=== PATIENT | male | born 1955 | race Caucasian/White ===

== ENCOUNTER → 2021-02-16 | Outpatient (CLI) | payer BC ==
--- NOTE | 2021-02-16 11:28 | P.STRESS ---
- Stress Test Note Stress Test Results/Findings: Exam Performed: stress echo exercise Exam Date: 02/16/21 Reason for Exam: CP Height: 6 ft 1 in Weight: 230 kg Protocol: STRESS ECHO Stage: IV Duration of Exercise: 12 Resting Heart Rate: 68 Resting Blood Pressure: 139/06 Maximum Achieved Heart Rate: 137 Maximum Achieved Blood Pressure: 211/97 85% PMHR: 87 100% PMHR: 157 METS: Technologist Comment: Stress Test Results/Findings: Patient exercised on a Saad protocol for 12 minutes Baseline 12-lead EKG sinus rhythm normal [place] narrow QRS normal ST segments No ECG evidence for ischemia No arrhythmias noted Baseline 2-D echo images showed normal LV size and systolic function without any segmental wall motion abnormalities At peak exercise, there was excellent augmentation of overall LV contractility without development of any wall motion abnormalities At the recovery regional and global LV systolic function remained normal Impression Hypertensive response to exercise Good exercise capacity No evidence for ischemia
--- NOTE | 2021-02-17 10:11 | EST ---
Stress Test Results/Findings: Exam Performed: stress echo exercise Exam Date: 02/16/21 Reason for Exam: CP Height: 6 ft 1 in Weight: 230 kg Protocol: STRESS ECHO Stage: IV Duration of Exercise: 12 Resting Heart Rate: 68 Resting Blood Pressure: 139/06 Maximum Achieved Heart Rate: 137 Maximum Achieved Blood Pressure: 211/97 85% PMHR: 87 100% PMHR: 157 METS: Technologist Comment: Stress Test Results/Findings: Patient exercised on a Saad protocol for 12 minutes Baseline 12-lead EKG sinus rhythm normal LA narrow QRS normal ST segments No ECG evidence for ischemia No arrhythmias noted Baseline 2-D echo images showed normal LV size and systolic function without any segmental wall motion abnormalities At peak exercise, there was excellent augmentation of overall LV contractility without development of any wall motion abnormalities At the recovery regional and global LV systolic function remained normal Impression Hypertensive response to exercise Good exercise capacity No evidence for ischemia MTDD
== END | disposition home or self-care (01) ==
LOC: RADNMMAIN 08:46
PROVIDERS: ATTEND Internal Medicine Geriatric Medicine
DX: R07.9 Chest pain, unspecified (principal)
CPT/HCPCS: 93351

== ENCOUNTER → 2022-08-11 | Outpatient (CLI) | payer MEDICARE ==
[2022-08-11 10:57] LABS: Basophils # (A) 0.07 X 10*3/uL (0.00-0.10); Basophils % (A) 1.2 %; Eosinophils # (A) 0.27 X 10*3/uL (0.04-0.35); Eosinophils % (A) 4.8 %; HCT 47.7 % (39.6-50.0); Immature Grans, Automated 0.2 %; Lymphocytes # (A) 1.35 X 10*3/uL (0.90-5.00); MCH 29.6 pg (27.0-32.0); MCHC 31.4 g/dL (32.0-37.0); MCV 94.1 fL (80.0-97.0); Mean Platelet Volume 10.6 fL (9.5-12.2); Monocytes # (A) 0.74 X 10*3/uL (0.20-1.00); Monocytes % (A) 13.2 %; NRBC Per 100 WBC 0 /100 WBCS (0.0-0.0); Neutrophils # (A) 3.18 X 10*3/uL (1.80-7.70); Neutrophils % (A) 56.6 %; Platelet Count 230 X 10*3/uL (140-440); RBC 5.07 X 10*6/uL (4.40-5.60); RDW 12.5 % (11.5-14.5); WBC 5.62 X 10*3/uL (4.50-10.00)
[2022-08-11 16:26] LABS: ALT 22 U/L (10-49); AST 19 U/L (14-35); African American GFR (CKD) 91.8 (60.0-200.0); Albumin 4.4 g/dL (3.8-4.9); Alkaline Phosphatase 62 U/L (41-126); Blood Urea Nitrogen 12.8 mg/dL (9.0-27.0); Calcium 9.4 mg/dL (8.7-10.3); Carbon Dioxide 23.7 mmol/L (20.0-27.5); Chloride 104 mmol/L (96-109); Chol/HDL Ratio 2.96 Ratio; Globulin 2.1 g/dL (1.6-3.3); Glucose 98 mg/dL (70-110); LDL Cholesterol,Calculated 118.1 mg/dL (0.0-131.0); Non-African American GFR(CKD) 79.2 (60.0-200.0); Potassium 4.8 mmol/L (3.5-5.5); Sodium 142 mmol/L (135-145); Total Protein 6.5 g/dL (6.2-8.2); VLDL Calculation 13.68 mg/dL (5.00-40.00)
== END | disposition home or self-care (01) ==
LOC: LABWHC1 07:08
PROVIDERS: ATTEND Internal Medicine Geriatric Medicine
DX: E78.2 Mixed hyperlipidemia (principal); R73.9 Hyperglycemia, unspecified
CPT/HCPCS: 36415; 80053; 80061; 84443; 85025

== ENCOUNTER 2023-04-04 08:59 | Day surgery (SDC) | payer MEDICARE ==
[~2023-04-04 08:59] MED LIST: LACTATED RINGERS 1,000 ML IV SCH; LIDOCAINE 1% (10MG/ML) FOR IV START INTRADERMA PRN; ONDANSETRON 4 MG/2 ML VIAL IVP PRN
[2023-04-04 10:48] VITALS: TEMP 98
[2023-04-04] MEDS ORDERED: PROPOFOL 10 MG/ML 20 ML VIAL IV ONE (10:55)
[2023-04-04] MEDS ORDERED: LIDOCAINE 1% INJ 10MG/ML (20 ML MDV) ONE (10:55)
--- NOTE | 2023-04-04 11:10 | P.PCN ---
Date of Procedure: 04/04/23 Procedure(s) Performed: BRIEF HISTORY: Patient is a 67-year-old pleasant male scheduled for an elective colonoscopy as a part of screening for colon cancer. PROCEDURE PERFORMED: Colonoscopy. PREOPERATIVE DIAGNOSIS: Screening for colon cancer. IV sedation per Anesthesia. PROCEDURE: After informed consent was obtained, the patient, was brought into the endoscopy unit. IV sedation was administered by Anesthesia under continuous monitoring. Digital rectal examination was normal. Initially the Olympus CF-160 flexible video colonoscope was then inserted in the rectum, gradually advanced into the cecum without any difficulty. Careful examination was performed as the scope was gradually being withdrawn. Ileocecal valve and the appendiceal orifice were visualized and appeared normal. Prep was excellent. Mucosa of the cecum, ascending colon, transverse colon, descending colon, sigmoid colon, and rectum appeared normal. Retroflexion was performed in the rectum and no lesions were seen. The patient tolerated the procedure well. IMPRESSION: Normal-appearing colon from rectum to cecum with no evidence of colorectal neoplasia. RECOMMENDATIONS: Findings of this examination were discussed with the patient as well as his family. He was advised to have a repeat screening colonoscopy in 10 years..
[2023-04-04 12:06] VITALS: BP 143/79; PULSE 71; RESP 18
== END 2023-04-04 12:01 | disposition home or self-care (01) ==
LOC: ORWHC2ENDO 08:59
PROVIDERS: ATTEND Internal Medicine Gastroenterology
DX: Z12.11 Encounter for screening for malignant neoplasm of colon (principal); Z79.899 Other long term (current) drug therapy; Z98.890 Other specified postprocedural states
CPT/HCPCS: J2001; J2704; G0121

== ENCOUNTER 2023-08-08 05:52 | Day surgery (SDC) | payer MEDICARE ==
[2023-08-08] MEDS: SODIUM CHLORIDE 0.9% 500 ML 500 ML IV ONE (06:18)
[2023-08-08 06:56] VITALS: RESP 16; TEMP 97.8
[2023-08-08] MEDS ORDERED: fentaNYL (PF) 50 MCG/ML 2 ML AMP ONE (07:20)
[2023-08-08] MEDS: BENZOCAINE SPRAY 1 CAN TOPICAL ONE (07:29)
[2023-08-08] MEDS: MIDAZOLAM 2 MG/2 ML VIAL IVP ONE ×2 (07:33→07:35)
[2023-08-08] MEDS: fentaNYL (PF) 50 MCG/ML 2 ML AMP IVP ONE (07:33)
--- NOTE | 2023-08-08 07:56 | P.PCN ---
Date of Procedure: 08/08/23 Description of Procedure: Indication: CVA Procedure Description: After explaining the procedure to the patient, it's risk and complications, blood pressure, heart rate and O2 saturation were monitored. The throat was sprayed with Cetacaine. Patient received 3 mg intravenous Versed, 50 mcg intravenous fentanyl. The probe was introduced into the esophagus without difficulty. Images were obtained. Following that, the probe was removed. There was no immediate complication. Findings: Left atrial size is mildly dilated, left atrial appendage is normal. Left ventricular size and systolic function are normal. The aortic valve, mitral valve and tricuspid valve are normal. Descending thoracic aorta is normal. No pericardial fusion was noted. Contrast bubble study revealed no shunting across the interatrial septum. Doppler: Pulse wave and color Doppler were obtained, and revealed mild mitral regur gitation, there was no shunting across the interatrial septum. Conclusion: 1. Mildly dilated left atrium with normal appearance of the left atrial appendage 2. Normal left ventricle size and systolic function 3. Mild mitral regurgitation 4. No shunting across the interatrial septum by contrast bubble study and color Doppler. 5. Normal appearance of the descending thoracic aorta Duration of sedation 15 minutes
[2023-08-08] MEDS ORDERED: SODIUM CHLORIDE 0.9% 1,000 ML IV SCH (08:00)
[2023-08-08] MEDS ORDERED: CLOPIDOGREL 75 MG TAB PO SCH (09:00)
[2023-08-08] MEDS ORDERED: LOSARTAN 50 MG TAB PO SCH (09:00)
[2023-08-08] MEDS ORDERED: APIXABAN 5 MG TAB PO SCH (09:00)
[2023-08-08] MEDS ORDERED: METOPROLOL TARTRATE 12.5 MG TAB PO SCH (09:00)
[2023-08-08 20:35] VITALS: BP 136/76; PULSE 61
[2023-08-08] MEDS ORDERED: ATORVASTATIN 40 MG TAB PO SCH (21:00)
[2023-08-08] MEDS ORDERED: LATANOPROST 0.005% OPHTH DROPS 2.5 ML BTL BOTH EYES SCH (21:00)
== END 2023-08-08 09:24 | disposition home or self-care (01) ==
LOC: CATHCVL 05:52
PROVIDERS: ATTEND Internal Medicine Interventional Cardiology
DX: I34.0 Nonrheumatic mitral (valve) insufficiency (principal); I10 Essential (primary) hypertension; E78.5 Hyperlipidemia, unspecified; Z79.82 Long term (current) use of aspirin; Z79.899 Other long term (current) drug therapy
CPT/HCPCS: 93312; 93320; 93325; J2250; J3010

== ENCOUNTER 2023-08-23 01:42 | Emergency (ER) | payer MEDICARE ==
[2023-08-23 01:54] VITALS: RESP 18
--- NOTE | 2023-08-23 02:12 | ED ---
General Adult HPI <Escobar Roa - Last Filed: 08/23/23 03:47> - General Source: patient Mode of arrival: ambulatory Limitations: no limitations <Dwaine Messina - Last Filed: 08/23/23 04:25> - General Chief complaint: Fall Stated complaint: Ear laceration Time Seen by Provider: 08/23/23 01:56 - History of Present Illness Initial comments: Dictation was produced using R2integrated dictation software. please excuse any grammatical, word or spelling errors. Chief Complaint: 67-year-old male presents emergency department with fall History of Present Illness: Patient 67-year-old male has past medical history of stroke. He has some debility and communication issues. He had some alcoholic beverages last night. 1230 went to the restroom. States that he slipped fell and struck the right side of his head on the shelf. There was some bleeding. heard a thud went to his help. Patient denies any pain. Patient does take anticoagulation medications. The ROS documented in this emergency department record has been reviewed and confirmed by me. Those systems with pertinent positive or negative responses have been documented in the HPI. All other systems are other negative and/or noncontributory. (Dwaine Messina) - Related Data Home Medications Medication Instructions Recorded Confirmed Latanoprost [Latanoprost 0.005%] 1 drop BOTH EYES HS 03/29/23 08/02/23 Unk [place] 1 tab PO DAILY 03/29/23 08/02/23 Unk Zinc 1 tab PO DAILY 03/29/23 08/02/23 Apixaban [Eliquis] 5 mg PO BID 08/02/23 08/02/23 Atorvastatin [Lipitor] 40 mg PO HS 08/02/23 08/02/23 Clopidogrel [Plavix] 75 mg PO DAILY 08/02/23 08/02/23 Losartan [Cozaar] 50 mg PO BID 08/02/23 08/02/23 Metoprolol Tartrate [Lopressor] 12.5 mg PO BID 08/02/23 08/02/23 Allergies Allergy/AdvReac Type Severity Reaction Status Date / Time No Known Allergies Allergy Verified 08/08/23 06:35 Review of Systems ROS Other: All systems not noted in ROS Statement are negative. <Escobar Roa - Last Filed: 08/23/23 03:47> ROS Other: All systems not noted in ROS Statement are negative. <Dwaine Messina - Last Filed: 08/23/23 04:25> ROS Statement: Those systems with pertinent positive or pertinent negative responses have been documented in the HPI. Past Medical History Past Medical History: Cancer, CVA/TIA, Hypertension Additional Past Medical History / Comment(s): skin - basal cell. Stroke 07/14/23 in [facility]. Current event moniter, residual difficulty speaking and walking, balance problems, some left sided weakness. Stroke July 2023 History of Any Multi-Drug Resistant Organisms: None Reported Past Surgical History: Appendectomy, Hernia Repair Additional Past Surgical History / Comment(s): Colonoscopy, skin ca removed. Past Anesthesia/Blood Transfusion Reactions: No Reported Reaction Past Psychological History: No Psychological Hx Reported Smoking Status: Never smoker Past Alcohol Use History: Rare Past Drug Use History: None Reported - Past Family History Father Family Medical History: No Reported History <Dwaine Messina - Last Filed: 08/23/23 04:25> General Exam Limitations: no limitations <Dwaine Messina - Last Filed: 08/23/23 04:25> - General Exam Comments Initial Comments: PHYSICAL EXAM: General Impression: Alert and oriented x3, not in acute distress HEENT: Small superficial laceration to the tragus of the right ear extra-ocular movements intact, pupils equal and reactive to light bilaterally, mucous membranes moist. Cardiovascular: Heart regular rate and rhythm Chest: Able to complete full sentences, no retractions, no tachypnea Abdomen: abdomen soft, non-tender, non-distended, no organomegaly Musculoskeletal: Pulses present and equal in all extremities, no peripheral edema Motor: no focal deficits noted Neurological: CN II-XII grossly intact, no focal motor or sensory deficits noted Skin: Intact with no visualized rashes Psych: Normal affect and mood (Dwaine Messina) Course Vital Signs 08/23/23 08/23/23 01:50 02:54 Temperature 98.2 F Pulse Rate 81 80 Respiratory 18 18 Rate Blood Pressure 146/91 135/80 O2 Sat by Pulse 97 96 Oximetry Procedures - Laceration Laceration #1 Consent Obtained: verbal consent Indication: laceration Site: other (R Ear) Size (cm): 3 Description: irregular Depth: simple, single layer Anesthetic Used: lidocaine 1%, without epi Anesthesia Technique: local infiltration, nerve block Amount (mls): 6 Pre-repair: wound explored, irrigated extensively, deep structures intact Type of Sutures: nylon Size of Sutures: 6-0 Number of Sutures: 5 Technique: simple, interrupted Patient Tolerated Procedure: well, no complications <Escobar Roa - Last Filed: 08/23/23 03:47> Medical Decision Making <Dwaine Messina - Last Filed: 08/23/23 04:25> - Medical Decision Making Was pt. sent in by a medical professional or institution (Dr. PA, ASSISTANT PROGRAM MANAGER, urgent care, hospital, or assisted...) When possible be specific @ -No Did you speak to anyone other than the patient for history (EMS, parent, family, police, friend...)? What history was obtained from this source @ -No Did you review nursing and triage notes (agree or disagree)? Why? @ -I reviewed and agree with nursing and triage notes Were old charts reviewed (outside hosp., previous admission, EMS record, old EKG, old radiological studies, urgent care reports/EKG's, assisted records)? Report findings @ -No old charts were reviewed Differential Diagnosis (chest pain, altered mental status, abdominal pain women, abdominal pain men, vaginal bleeding, musculoskeletal, weakness, fever, dyspnea, syncope, headache, dizziness, GI bleed, back pain, seizure, CVA, palpatations, mental health)? @ -Differential Musculoskeletal: Muscular strain, contusion, ligament sprain, fracture, arthritis, septic arthritis, bursitis, cellulitis, muscle spasm, nerve compression, DVT, arterial occlusion, herpes zoster, electrolyte abnormality, tumor.... This is not meant to be in all inclusive list EKG interpreted by me (3pts min.). @ -None done X-rays interpreted by me (1pt min.). @ -None done CT interpreted by me (1pt min.). @ -CT brain and C-spine shows no acute processes U/S interpreted by me (1pt. min.). @ -None done What testing was considered but not performed or refused? (CT, X-rays, U/S, labs)? Why? @ -None What meds were considered but not given or refused? Why? @ -None Did you discuss the management of the patient with other professionals (professionals i.e. , CARLTON, ASSISTANT PROGRAM MANAGER, lab, RT, psych nurse, social media community manager, records supervisor, teacher, consumer loan officer, field nurse case manager)? Give summary @ -No Was smoking cessation discussed for >3mins.? @ -No Was critical care preformed (if so, how long)? @ -No Were there social determinants of health that impacted care today? How? (Homelessness, low income, unemployed, alcoholism, drug addiction, transportation, low edu. Level, literacy, decrease access to med. care, senior care, rehab)? @ -No Was there de-escalation of care discussed even if they declined (Discuss DNR or withdrawal of care, Hospice)? DNR status @ -No What co-morbidities impacted this encounter? (DM, HTN, Smoking, COPD, CAD, Cancer, CVA, ARF, Chemo, Hep., AIDS, mental health diagnosis, sleep apnea, morbid obesity)? @ -None Was patient admitted / discharged? Hospital course, mention meds given and route, prescriptions, significant lab abnormalities, going to OR and other pertinent info. @ -67-year-old male presents emergency department with right ear laceration after mechanical fall. Vital signs stable. Patient has history of stroke. Patient has no other complaints. CT brain is negative. Laceration was repaired. Tetanus updated. Patient discharged with instructions for suture removal in approximately 7 days Undiagnosed new problem with uncertain prognosis? @ -No Drug Therapy requiring intensive monitoring for toxicity (Heparin, Nitro, Insu angelica, Cardizem)? @ -No Were any procedures done? @ -See laceration note repair done by CARLTON Roa Diagnosis/symptom? Acute, or Chronic, or Acute on Chronic? Uncomplicated (without systemic symptoms) or Complicated (systemic symptoms)? @ -Ear laceration Side effects of treatment? @ -No Exacerbation, Progression, or Severe Exacerbation? @ -No Poses a threat to life or bodily function? How? (Chest pain, [place], [place], pneumonia, PE, COPD, DKA, ARF, appy, cholecystitis, CVA, Diverticulitis, Homicidal, Suicidal, threat to staff... and all critical care pts) @ -No (Dwaine Messian) Disposition <Jennifer Roashua - Last Filed: 08/23/23 03:47> Is patient prescribed a controlled substance at d/c from ED?: No Time of Disposition: 04:22 <Dwaine Messina - Last Filed: 08/23/23 04:25> Clinical Impression: Fall, Laceration of ear Disposition: HOME SELF-CARE Condition: Good Instructions (If sedation given, give patient instructions): Fall Prevention for Older Adults (ED) Additional Instructions: suture removal in 7-10 days Referrals: Armani Youssef MD [Primary Care Provider] - 1-2 days
[2023-08-23] MEDS: LIDOCAINE 1% INJ 10MG/ML (20 ML MDV) SQ ONE (02:46)
[2023-08-23] MEDS: DIPH,PERTUS(ACELL)TETVAC-LF 0.5 ML VIAL IM ONE (02:47)
--- NOTE | 2023-08-23 04:15 | CT ---
EXAM: CT Head Without Intravenous Contrast CLINICAL HISTORY: ITS.REASON CT Reason: fall TECHNIQUE: Axial computed tomography images of the head/brain without intravenous contrast. CTDI is 45.2 mGy and DLP is 1111 mGy-cm. This CT exam was performed using one or more of the following dose reduction techniques: automated exposure control, adjustment of the mA and/or kV according to patient size, and/or use of iterative reconstruction technique. COMPARISON: No relevant prior studies available. FINDINGS: No acute intracranial hemorrhage. No midline shift or mass effect. The territorial luis-white matter differentiation is maintained throughout. Age-related cerebral volume loss. Periventricular and subcortical white matter hypoattenuation, consistent with chronic microangiopathy. The visualized orbits appear grossly unremarkable. The calvarium is intact. The visualized paranasal sinuses and mastoid air cells are grossly clear. IMPRESSION: No acute intracranial hemorrhage, midline shift, or mass effect. EXAM: CT Cervical Spine Without Intravenous Contrast CLINICAL HISTORY: ITS.REASON CT Reason: fall TECHNIQUE: Axial computed tomography images of the cervical spine without intravenous contrast. CTDI is 19 mGy and DLP is 537.1 mGy-cm. This CT exam was performed using one or more of the following dose reduction techniques: automated exposure control, adjustment of the mA and/or kV according to patient size, and/or use of iterative reconstruction technique. COMPARISON: No relevant prior studies available. FINDINGS: The vertebral body heights are maintained. The craniocervical junction is intact. The atlanto-dens interval is maintained. The dens is intact. There is no spondylolisthesis. Multilevel cervical spondylosis and degenerative disc disease. Straightening of the cervical lordosis. The unenhanced neck soft tissues are grossly unremarkable. The visualized lung apices are grossly clear. IMPRESSION: No acute fracture or subluxation of the cervical spine.
[2023-08-23 04:43] VITALS: BP 132/74; PULSE 75; TEMP 98
== END 2023-08-23 04:41 | disposition home or self-care (01) ==
LOC: EC 01:42
DX: S01.311A Laceration without foreign body of right ear, initial encounter (principal); Z23 Encounter for immunization; W01.0XXA Fall on same level from slipping, tripping and stumbling without subsequent striking against object, initial encounter
CPT/HCPCS: 93005; 72125; 70450; 90715; 99284; 90471; 12013; J2001

== ENCOUNTER → 2024-10-08 | Outpatient (CLI) | payer MEDICARE ==
[2024-10-08 15:06] LABS: Basophils # (A) 0.07 X 10*3/uL (0.00-0.10); Basophils % (A) 1.0 %; Eosinophils # (A) 0.34 X 10*3/uL (0.04-0.35); Eosinophils % (A) 4.9 %; HCT 46.0 % (39.6-50.0); HGB 14.6 g/dL (13.0-17.0); Immature Grans, Automated 0.30 %; Lymphocytes # (A) 1.87 X 10*3/uL (0.90-5.00); Lymphocytes % (A) 27.1 %; MCH 29.6 pg (27.0-32.0); MCHC 31.7 g/dL (32.0-37.0); MCV 93.3 FL (80.0-97.0); Monocytes # (A) 0.79 X 10*3/uL (0.20-1.00); Monocytes % (A) 11.4 %; NRBC Per 100 WBC 0 X 10*3/uL (0.00-0.01); Neutrophils # (A) 3.82 X 10*3/uL (1.80-7.70); Neutrophils % (A) 55.3 %; Platelet Count 270 X 10*3/uL (140-440); RBC 4.93 X 10*6/uL (4.40-5.60); RDW 12.3 % (11.5-14.5); WBC 6.91 X 10*3/uL (4.50-10.00)
[2024-10-08 15:26] LABS: ALT 20 U/L (10-49); AST 19 U/L (14-35); Albumin 4.3 g/dL (3.8-4.9); Albumin/Globulin Ratio 1.95 Ratio (1.60-3.17); Alkaline Phosphatase 70 U/L (41-126); Anion Gap 10.20 mmol/L (4.00-12.00); BUN/Creat Ratio 10.40 Ratio (12.00-20.00); Blood Urea Nitrogen 10.4 mg/dL (9.0-27.0); Calcium 9.5 mg/dL (8.7-10.3); Carbon Dioxide 23.8 mmol/L (21.6-31.8); Chloride 108 mmol/L (96-109); Cholesterol 132.00 mg/dL (0.00-200.00); Creatine Kinase 92 U/L (35-257); Globulin 2.2 g/dL (1.6-3.3); Glucose 94 mg/dL (70-110); HDL Cholesterol 61.10 mg/dL (40.00-60.00); LDL Cholesterol,Calculated 56.8 mg/dL (0.0-131.0); Potassium 4.6 mmol/L (3.5-5.5); Sodium 142 mmol/L (135-145); Total Protein 6.5 g/dL (6.2-8.2); Triglycerides 70.60 mg/dL (0.00-149.00); VLDL Calculation 14.12 mg/dL (5.00-40.00)
== END | disposition home or self-care (01) ==
LOC: LABWHC1 09:37
PROVIDERS: ATTEND Internal Medicine Geriatric Medicine
DX: D68.4 Acquired coagulation factor deficiency (principal); E78.2 Mixed hyperlipidemia; R73.9 Hyperglycemia, unspecified
CPT/HCPCS: 36415; 80053; 80061; 82550; 83036; 84443; 85025